=== PATIENT | female | born 1990 | race African-American/Black ===

== ENCOUNTER 2016-10-22 03:12 | Emergency (ER) | payer SELFPAY ==
[~2016-10-22] VITALS: Ht 162.6 cm; Wt 47.0 kg
[2016-10-22 04:37] LABS: BASOPHILS % 0.7 % (0.0-2.0); EOSINOPHILS % 1.9 % (0.0-5.0); HEMATOCRIT. 38.1 % (36.0-48.0); HEMOGLOBIN. 12.7 g/dL (12.0-16.0); LYMPHOCYTES % 34.6 % (20.0-50.0); MEAN CORPUSCULAR HEMOGLOBIN 28.9 pg (28.0-32.0); MEAN CORPUSCULAR HGB CONC 33.3 g/dL (31.0-37.0); MEAN CORPUSCULAR VOLUME 86.8 fL (81.0-99.0); MONOCYTES % 9.6 % (2.0-8.0); NEUTROPHILS % 53.2 % (40.0-76.0); PLATELET 455 x1000/uL (130-400); RED BLOOD CELL COUNT 4.38 mill/uL (4.2-5.4); RED CELL DISTRIBUTION WIDTH 13.1 % (11.6-14.6); WHITE BLOOD COUNT 6.3 x1000/uL (4.5-11.0)
[2016-10-22 04:45] LABS: HCG SCREEN NEGATIVE
[2016-10-22 04:52] LABS: ALANINE AMINOTRANSFERASE 39 IU/L (13-61); ALBUMIN 3.9 g/dL (3.4-5.0); ANION GAP 11; CALCIUM 8.6 mg/dL (8.5-10.1); CARBON DIOXIDE 27 mEq/L (21-32); CHLORIDE 108 mEq/L (98-107); ETHANOL BLOOD < 10 mg/dL; INDEX HEMOLYSI 1 (1-3); INDEX ICTERIC 1 (1-4); INDEX LIPEMIC 1 (1-3); UREA NITROGEN BLOOD 19 mg/dL (7-21); eGFR > 60 mL/min (>60)
[2016-10-22 04:53] LABS: ACETAMINOPHEN < 2 ug/mL (10-30)
[2016-10-22 07:23] LABS: CLARITY URINE CLEAR (CLEAR); COLOR URINE YELLOW (YELLOW); GLUCOSE URINE NEGATIVE (NEGATIVE); KETONES URINE 1+ (NEGATIVE); LEUKOCYTE ESTERASE URINE NEGATIVE (NEGATIVE); NITRITE URINE NEGATIVE (NEGATIVE); OCCULT BLOOD URINE NEGATIVE (NEGATIVE); PH URINE 5.5 (4.5-8.0); PROTEIN URINE TRACE (NEGATIVE); SPECIFIC GRAVITY URINE 1.037 (1.005-1.030); UROBILINOGEN URINE 0.2 E.U./dL (0.2-1.0)
[2016-10-22 07:34] LABS: *AMPHETAMINES SCREEN URINE NEGATIVE (NEGATIVE); *BARBITURATES SCREEN URINE NEGATIVE (NEGATIVE); *BENZODIAZEPINES SCREEN URINE NEGATIVE (NEGATIVE); *COCAINE SCREEN URINE NEGATIVE (NEGATIVE); ECSTASY MDMA SCREEN URINE NEGATIVE (NEGATIVE); METHADONE URINE SCREEN NEGATIVE (NEGATIVE); OPIATES URINE SCREEN NEGATIVE (NEGATIVE); PHENCYCLIDINE URINE SCREEN NEGATIVE (NEGATIVE)
[2016-10-22 07:48] LABS: CANNABINOID URINE SCREEN PRESUMTIVE POSITIVE (NEGATIVE)
[2016-10-22 07:58] LABS: BACTERIA URINE TRACE; RBC URINE 0-2 /hpf (0-2); SQUAMOUS EPITHELIAL CELL URINE 2+ /lpf (RARE/1+); WBC URINE 0-2 /hpf (0-2)
[2016-10-22 07:59] LABS: MUCUS URINE 1+ /lpf (< = 2+)
[2016-10-22] MEDS ORDERED: OLANZAPINE 10 MG/VIAL IM ONE (08:15)
[2016-10-22] MEDS ORDERED: LORAZEPAM 2MG/ML CPJ IM ONE (09:45)
[2016-10-23] MEDS ORDERED: OLANZAPINE 10 MG/VIAL IM ONE (09:00)
[2016-10-23] MEDS ORDERED: LORAZEPAM 2MG/ML CPJ IM ONE (09:00)
[2016-10-23 15:30] VITALS: BP 118/65
== END 2016-10-23 18:30 | disposition left against medical advice (07) ==
LOC: EDBD 03:22 → ER 03:22
DX: F23 Brief psychotic disorder (principal); R45.1 Restlessness and agitation; R40.4 Transient alteration of awareness; Z78.1 Physical restraint status
CPT/HCPCS: 36415; 70450; 80053; 80305; 80307; 80329; 81001; 84703; 85025; 93005; 96372; 99285; G0482; J2060; J3490; Z7610

== ENCOUNTER 2024-05-30 06:11 | Emergency (ER) | payer MEDICAID ==
[~2024-05-30] VITALS: Ht 165.1 cm; Wt 43.2 kg
[2024-05-30 06:23] VITALS: BP 131/65; RESP 18; TEMP 98; O2SAT 99
[2024-05-30 06:42] VITALS: PULSE 105; O2SAT 95
[2024-05-30] MEDS ORDERED: DIPHENHYDRAMINE 50MG CAPSULE PO ONE (12:15)
[2024-05-30] MEDS ORDERED: DIPHENHYDRAMINE 25MG CAPSULE PO NR (12:15)
== END 2024-05-30 12:32 | disposition left against medical advice (07) ==
LOC: ER 06:11
DX: R44.0 Auditory hallucinations (principal); Z98.890 Other specified postprocedural states; Z72.0 Tobacco use
CPT/HCPCS: 99281; Q0163

== ENCOUNTER 2024-05-30 17:48 | Emergency (ER) | payer MEDICAID ==
[~2024-05-30] VITALS: Ht 162.6 cm; Wt 63.0 kg
[2024-05-30 17:53] VITALS: O2SAT 99
[2024-05-30 18:38] LABS: CLARITY URINE CLEAR (CLEAR); COLOR URINE YELLOW (YELLOW); GLUCOSE URINE NEGATIVE (NEGATIVE); KETONES URINE NEGATIVE (NEGATIVE); LEUKOCYTE ESTERASE URINE NEGATIVE (NEGATIVE); NITRITE URINE NEGATIVE (NEGATIVE); OCCULT BLOOD URINE NEGATIVE (NEGATIVE); PH URINE 5.5 (4.5-8.0); PROTEIN URINE 1+ (NEGATIVE); SPECIFIC GRAVITY URINE 1.033 (1.005-1.030); UROBILINOGEN URINE 0.2 E.U./dL (0.2-1.0)
[2024-05-30 18:46] LABS: *AMPHETAMINES SCREEN URINE PRESUMPTIVE POSITIVE (NEGATIVE); *BENZODIAZEPINES SCREEN URINE NEGATIVE (NEGATIVE)
[2024-05-30 18:47] LABS: *BARBITURATES SCREEN URINE NEGATIVE (NEGATIVE); *COCAINE SCREEN URINE NEGATIVE (NEGATIVE); CANNABINOID URINE SCREEN NEGATIVE (NEGATIVE); ECSTASY MDMA SCREEN URINE NEGATIVE (NEGATIVE); METHADONE URINE SCREEN NEGATIVE (NEGATIVE); OPIATES URINE SCREEN NEGATIVE (NEGATIVE); PHENCYCLIDINE URINE SCREEN NEGATIVE (NEGATIVE)
[2024-05-30 18:57] LABS: BACTERIA URINE 1+; RBC URINE 0-2 /hpf (0-2); SQUAMOUS EPITHELIAL CELL URINE 1+ /lpf (RARE/1+); WBC URINE 0-2 /hpf (0-2)
[2024-05-30 18:58] LABS: UCG KIT LOT# 865648; UCG SCREEN NEGATIVE
[2024-05-30 20:41] LABS: CHLORIDE 102 mEq/L (98-107); SODIUM 138 mEq/L (136-145)
[2024-05-30 20:42] LABS: CALCIUM 9.7 mg/dL (8.7-10.4); CARBON DIOXIDE 29 mEq/L (21-32)
[2024-05-30 20:43] LABS: BASOPHILS % 0.6 % (0.0-2.0); EOSINOPHILS % 1.2 % (0.0-5.0); HEMATOCRIT. 37.1 % (36.0-48.0); HEMOGLOBIN. 12.2 g/dL (12.0-16.0); LYMPHOCYTES % 18.9 % (20.0-50.0); MEAN CORPUSCULAR HEMOGLOBIN 28.6 pg (28.0-32.0); MEAN CORPUSCULAR HGB CONC 32.8 g/dL (31.0-37.0); MEAN CORPUSCULAR VOLUME 87.1 fL (81.0-99.0); MEAN PLATELET VOLUME 9.4 fl (7.4-10.4); MONOCYTES % 14.1 % (2.0-8.0); NEUTROPHILS % 65.2 % (40.0-76.0); PLATELET 270 x1000/uL (130-400); RED BLOOD CELL COUNT 4.26 mill/uL (4.2-5.4); RED CELL DISTRIBUTION WIDTH 14.1 % (11.6-14.6); WHITE BLOOD COUNT 9.2 x1000/uL (4.5-11.0)
[2024-05-30 20:47] LABS: CREATININE 0.8 mg/dL (0.6-1.0)
[2024-05-30 20:48] LABS: GLUCOSE 77 mg/dL (70-105); UREA NITROGEN BLOOD 13 mg/dL (9-23)
[2024-05-30 20:49] LABS: ACETAMINOPHEN < 2 ug/mL (10-30)
[2024-05-30 20:50] LABS: ETHANOL BLOOD < 10 mg/dL (<10)
[2024-06-01 14:00] VITALS: BP 122/64; PULSE 74; RESP 16; TEMP 36.78072; O2SAT 99
== END 2024-06-01 14:00 | disposition home or self-care (01) ==
LOC: ER 18:24
DX: R44.0 Auditory hallucinations (principal); Z20.822 Contact with and (suspected) exposure to COVID-19; Z98.890 Other specified postprocedural states
CPT/HCPCS: 36415; 80048; 80305; 80307; 80320; 80329; 81003; 81025; 85025; 87426; 99285; G0480

== ENCOUNTER 2024-06-16 20:55 | Emergency (ER) | payer MEDICAID ==
[~2024-06-16] VITALS: Ht 165.1 cm; Wt 53.0 kg
[2024-06-16 21:22] VITALS: O2SAT 99
[2024-06-16 21:43] VITALS: BP 110/76; PULSE 97; RESP 18; TEMP 98; O2SAT 100
== END 2024-06-16 23:25 | disposition left against medical advice (07) ==
LOC: ER 20:55
DX: R44.0 Auditory hallucinations (principal); Z53.21 Procedure and treatment not carried out due to patient leaving prior to being seen by health care provider